=== PATIENT | male | born 1990 | race Caucasian/White ===

== ENCOUNTER 2021-01-04 16:43 | Emergency (ER) | payer SELFPAY ==
[~2021-01-04] VITALS: Ht 180.3 cm; Wt 79.4 kg
[2021-01-04 17:03] VITALS: BP 138/81
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
[2021-01-04] MEDS ORDERED: TRAMADOL HCL 50 MG TABLET ONE (17:53)
[2021-01-04] MEDS: TRAMADOL HCL 50 MG TABLET PO ONE (17:58)
[2021-01-04] MEDS ORDERED: IBUPROFEN 400 MG TABLET ONE (18:03)
[2021-01-04] MEDS: IBUPROFEN 400 MG TABLET PO ONE (18:05)
[2021-01-04] MEDS ORDERED: IBUP-1957 PO (18:33)
[2021-01-04] MEDS ORDERED: CYCL5TAB PO (18:33)
--- NOTE | 2021-01-04 19:01 | NUR ---
Patient discharged to home in stable condition. Written and verbal after care instructions given. Patient verbalizes understanding of instruction.
== END 2021-01-04 19:02 | disposition home or self-care (01) ==
LOC: ER 17:12
DX: S40.012A Contusion of left shoulder, initial encounter (principal); S40.011A Contusion of right shoulder, initial encounter; R07.89 Other chest pain; Z79.899 Other long term (current) drug therapy; Y08.89XA Assault by other specified means, initial encounter; Y93.89 Activity, other specified; Y92.89 Other specified places as the place of occurrence of the external cause; Y99.8 Other external cause status
CPT/HCPCS: 71111-TC; 73020; 73030-TC